=== PATIENT | male | born 1950 | race Caucasian/White ===

== ENCOUNTER → 2020-11-16 | Outpatient (CLI) | payer MEDICARE ==
[~2020-11-16] MED LIST: AMLODIPINE BESY10 MG PO; ATORVASTATIN CA20 MG PO; HYDROCHLOROTH12.5 M1 PO; LEVOTHYROXINE25 MCG PO; LOSARTAN POTAS100 MG PO
== END ==
LOC: RAD 11:43
PROVIDERS: ATTEND Internal Medicine
DX: I82.409 Acute embolism and thrombosis of unspecified deep veins of unspecified lower extremity (principal)
CPT/HCPCS: 93971

== ENCOUNTER → 2021-03-17 | Outpatient (CLI) | payer MEDICARE ==
[~2021-03-17] MED LIST changes: +REGADENOSON 0.4 MG/5 ML SYR IV ONE
== END ==
LOC: NM 09:45
PROVIDERS: ATTEND Internal Medicine Cardiovascular Disease
DX: R07.9 Chest pain, unspecified (principal)
CPT/HCPCS: 78452; 93017; A9502; J2785

== ENCOUNTER → 2021-04-19 | Day surgery (SDC) | payer MEDICARE ==
[2021-04-17 12:11] LABS: BASOPHILS # (AUTO) 0.1 (0.0-0.1); BASOPHILS % 0.6 % (0.0-1.0); EOSINOPHILS # (AUTO) 0.3 (0.0-0.4); EOSINOPHILS % 3.3 % (0.0-6.0); HEMATOCRIT 50.8 % (38.2-49.6); HEMOGLOBIN 16.8 g/dL (14.0-18.0); LYMPHOCYTES # (AUTO) 1.4 (1.0-3.2); LYMPHOCYTES % 16.5 % (18.0-39.1); MEAN CORPUSCULAR HEMOGLOBIN 34.1 pg (28-32); MEAN CORPUSCULAR HGB CONC 33.1 g/dL (31-35); MONOCYTES % 11.5 % (4.4-11.3); NEUTROPHILS # (AUTO) 5.6 (2.1-6.9); NEUTROPHILS % 67.5 % (38.7-80.0); PLATELET COUNT 208 x10e3/uL (140-360); RED BLOOD COUNT 4.93 x10e6/uL (4.3-5.7); RED CELL DISTRIBUTION WIDTH 13.4 % (11.7-14.4)
[~2021-04-19] MED LIST changes: +CALAN SR240 MG PO; +KETAMINE HCL INJ 50 MG/ML 10 ML VIAL ONE; +LIDOCAINE HCL 2% LOCAL INJ 5 ML SDV VIAL INJ ONE; +MIDAZOLAM HCL 2 MG/2 ML VIAL ONE; +POVIDONE IODINE 0.05% 0.05 % ML PO ONE; +PROPOFOL IV EMULSION 10 MG/ML 20 ML VIAL ONE; -REGADENOSON 0.4 MG/5 ML SYR IV ONE; +XARELTO20 MG PO
[2021-04-19 12:25] VITALS: BP 133/80
== END | disposition home or self-care (01) ==
LOC: OR 09:01
PROVIDERS: ATTEND Internal Medicine Gastroenterology
DX: D12.5 Benign neoplasm of sigmoid colon (principal); D12.3 Benign neoplasm of transverse colon; Z01.812 Encounter for preprocedural laboratory examination; K57.30 Diverticulosis of large intestine without perforation or abscess without bleeding; E66.01 Morbid (severe) obesity due to excess calories; Z68.41 Body mass index [BMI] 40.0-44.9, adult; I10 Essential (primary) hypertension; Z88.0 Allergy status to penicillin; Z87.891 Personal history of nicotine dependence; K64.8 Other hemorrhoids
CPT/HCPCS: 36415; 45380; 45385; 85025; 88305; J2001; J2250; J2704; 45384

== ENCOUNTER → 2023-01-23 | Outpatient (CLI) | payer MEDICARE ==
[~2023-01-23] MED LIST changes: -KETAMINE HCL INJ 50 MG/ML 10 ML VIAL ONE; -LIDOCAINE HCL 2% LOCAL INJ 5 ML SDV VIAL INJ ONE; -MIDAZOLAM HCL 2 MG/2 ML VIAL ONE; -POVIDONE IODINE 0.05% 0.05 % ML PO ONE; -PROPOFOL IV EMULSION 10 MG/ML 20 ML VIAL ONE
== END ==
LOC: RAD 14:52
PROVIDERS: ATTEND Internal Medicine
DX: M79.605 Pain in left leg (principal); I82.512 Chronic embolism and thrombosis of left femoral vein
CPT/HCPCS: 93971

== ENCOUNTER 2024-05-19 10:56 | Outpatient (RCR) | payer MEDICARE | END 2024-05-23 | LOC: PT 10:56 | PROVIDERS: ATTEND Internal Medicine | DX: M48.061 Spinal stenosis, lumbar region without neurogenic claudication (principal); S32.029D Unspecified fracture of second lumbar vertebra, subsequent encounter for fracture with routine healing; M17.12 Unilateral primary osteoarthritis, left knee; M62.81 Muscle weakness (generalized) ==

== ENCOUNTER 2024-05-27 11:15 | Outpatient (RCR) | payer MEDICARE | END 2024-06-22 | LOC: PT 11:15 | PROVIDERS: ATTEND Internal Medicine | DX: M17.12 Unilateral primary osteoarthritis, left knee (principal); M62.81 Muscle weakness (generalized); M48.061 Spinal stenosis, lumbar region without neurogenic claudication; S32.029D Unspecified fracture of second lumbar vertebra, subsequent encounter for fracture with routine healing ==

== ENCOUNTER 2025-05-17 12:06 | Emergency (ER) | payer MEDICARE ==
[~2025-05-17] VITALS: Ht 182.9 cm; Wt 124.7 kg
[2025-05-17 12:20] VITALS: TEMP 97.5
[2025-05-17] MEDS ORDERED: LEVOFLOXACIN 750MG/D5W 150ML 150 ML IV SCH (12:45)
[2025-05-17] MEDS: SODIUM CHLORIDE 0.9% 1000ML 1,000 ML IV STA ×3 (12:52→16:01)
[2025-05-17 13:21] LABS: BASOPHILS % 0.4 % (0.0-1.0); EOSINOPHILS % 0.6 % (0.0-6.0); LYMPHOCYTES % 6.6 % (18.0-39.1); MONOCYTES % 8.1 % (4.4-11.3); NEUTROPHILS % 77.0 % (38.7-80.0); RED CELL DISTRIBUTION WIDTH 14.3 % (11.7-14.4)
[2025-05-17] MEDS: ACETAMINOPHEN 325 MG TAB PO STA (13:55)
[2025-05-17 13:56] LABS: EST GLOMERULAR FILTRATION RATE 35.0 ML/MIN (>=60)
[2025-05-17] MEDS ORDERED: IOPAMIDOL 370 MG/ML 100 ML INFUS..BTL INJ ONE (14:09)
[2025-05-17] MEDS ORDERED: SODIUM CHLORIDE 0.9% 1000ML 1,000 ML ONE (14:12)
[2025-05-17] MEDS: SODIUM CHLORIDE 0.9% 1000ML 1,000 ML IV ONE (14:19)
[2025-05-17] MEDS: LEVOFLOXACIN 750MG/D5W 150ML 150 ML IV SCH (14:19)
[2025-05-17 15:37] LABS: ETHANOL < 10.0 mg/dL (0.0-10.0)
[2025-05-17 16:15] LABS: LEUKOCYTE ESTERASE ,URINE LARGE (NEGATIVE); PROTEIN,URINE DIPSTICK 2+ (NEGATIVE); URINE UROBILINOGEN 0.2 mg/dL (0.2 - 1)
[2025-05-17 16:28] LABS: WBC,URINE (MAN) >50 /HPF (0-5)
[2025-05-17 17:06] LABS: CORONAVIRUS COVID-19 AG NEGATIVE (NEGATIVE)
[2025-05-17 18:15] VITALS: PULSE 74; RESP 23; O2SAT 97
[2025-05-17 18:15] LABS: EOSINOPHILS % (MANUAL) 1 % (0-7); LYMPHOCYTES % (MANUAL) 11 % (19-48); MONOCYTES % (MANUAL) 5 % (3.4-9.0); NEUTROPHILS % (MANUAL) 80 % (40-74); PLATELET ESTIMATE ADEQUATE; PLATELET MORPHOLOGY COMMENT NORMAL; RBC MORPHOLOGY COMMENT NORMAL; REACTIVE LYMPHOCYTES 3
== END 2025-05-17 18:44 | disposition short-term general hospital (02) ==
LOC: ER 12:17
DX: R09.02 Hypoxemia (principal); R65.21 Severe sepsis with septic shock; J90 Pleural effusion, not elsewhere classified; R07.89 Other chest pain; N39.0 Urinary tract infection, site not specified; Z11.52 Encounter for screening for COVID-19; R94.31 Abnormal electrocardiogram [ECG] [EKG]
CPT/HCPCS: 36415; 71260; 80053; 80320; 81001; 82550; 83605; 83690; 83880; 84484; 85025; 87040; 87071; 87086; 87186; 87205; 87426; 93005; 99284; J7030; Q9967